=== PATIENT | male | born 2005 ===

== ENCOUNTER 2024-09-23 09:00 | Emergency (ER) | payer BC ==
[2024-09-23] MEDS: Ondansetron 4 MG/2 ML SDV IVPUSH ONE (09:20)
[2024-09-23 09:21] LABS: BASOPHILS ABSOLUTE AUTO 0.02 K/uL (0.00-0.30); BASOPHILS PERCENT AUTO 0.2 % (0.0-1.0); EOSINOPHILS ABSOLUTE AUTO 0.09 K/uL (0.00-0.70); EOSINOPHILS PERCENT AUTO 0.9 % (0.0-5.0); IMMATURE GRAN ABSOLUTE AUTO 0.02 K/uL (0.00-0.05); IMMATURE GRAN PERCENT AUTO 0.2 % (0.0-0.4); LYMPHOCYTES ABSOLUTE AUTO 1.86 K/uL (2.00-8.80); LYMPHOCYTES PERCENT AUTO 19.3 % (50.0-65.0); MEAN PLATELET VOLUME 10.1 fL (9.4-12.4); MONOCYTES ABSOLUTE AUTO 0.42 K/uL (0.10-1.40); MONOCYTES PERCENT AUTO 4.3 % (2.0-10.0); NEUTROPHILS ABSOLUTE AUTO 7.25 K/uL (1.50-8.50); NEUTROPHILS PERCENT AUTO 75.1 % (35.0-45.0); NRBC ABSOLUTE 0.00 K/uL (0.00-0.03); NRBC PERCENT 0.0 /100WBC (0.0-0.2); PLATELET COUNT,PLT 216 K/uL (150-400); RED BLOOD CELL COUNT 5.03 M/uL (4.52-5.90); WHITE BLOOD CELL COUNT,WBC 9.66 K/uL (4.5-13.5)
[2024-09-23 09:48] LABS: A/G RATIO 1.4 (0.9-1.6); ALANINE AMINOTRANSFERASE,ALT 31.0 IU/L (14-63); ASPARTATE AMNIOTRANSFERASE,AST 23.0 IU/L (15-37); BILIRUBIN TOTAL 0.8 mg/dL (0.2-1.0); BLOOD UREA NITROGEN,BUN 19.0 mg/dL (7.0-18.0); CARBON DIOXIDE,CO2 29.7 mmol/L (21.0-32.0); CHLORIDE,CL 101.0 mmol/L (98-107); CREATININE 1.2 mg/dL (0.8-1.3); EST CRCL DRUG DOSING (CG) 85.76 mL/min; GLUCOSE RANDOM 93.0 mg/dL (74-106); POTASSIUM,K 3.9 mmol/L (3.5-5.1); PROTEIN TOTAL,TP 8.3 g/dL (6.4-8.2); SODIUM,NA 139.0 mmol/L (136-148)
[2024-09-23 09:49] LABS: ESTIMATED GFR 89.0 mL/min (>60)
== END 2024-09-23 11:11 | disposition home or self-care (01) ==
LOC: MW.ED 09:00
DX: K29.70 Gastritis, unspecified, without bleeding (principal); F17.200 Nicotine dependence, unspecified, uncomplicated; Z75.3 Unavailability and inaccessibility of health-care facilities
CPT/HCPCS: 36415; 80053; 83690; 85025; 96361; 96374; 96375; 99284; J1308; J2405; J7030